=== PATIENT | female | born 1950 | race Caucasian/White ===

== ENCOUNTER 2016-12-29 16:20 | Outpatient (CLI) | payer MEDICARE | END 2016-12-29 23:59 | disposition home or self-care (01) | LOC: RT 16:20 | PROVIDERS: ATTEND Orthopaedic Surgery | DX: Z01.818 Encounter for other preprocedural examination (principal) | CPT/HCPCS: 93005 ==

== ENCOUNTER 2017-08-26 10:36 | Outpatient (CLI) | payer MEDICARE ==
--- NOTE | 2017-08-27 16:02 | Mammography Report ---
DATE OF SERVICE: 08/26/2017 DIGITAL SCREENING MAMMOGRAM: 08/26/2017 CLINICAL INDICATION: A 67-year-old nulliparous patient for screening. COMPARISON: 05/2016, 09/2014, 03/2012, 12/2010, 11/2009. TECHNIQUE: Routine CC and MLO projections were obtained of the breasts. FINDINGS: The breasts demonstrate scattered fibroglandular densities bilaterally. Coarse and punctate, typically benign calcifications are present. No suspicious masses, clustered microcalcifications, or regions of architectural distortion are identified. IMPRESSION: BENIGN FINDINGS. RECOMMENDATION: Routine annual screening unless otherwise clinically indicated. BIRADS CATEGORY 2 - BENIGN FINDINGS. STANDARD QUALIFYING STATEMENTS: 1. This examination was reviewed with the aid of Computer-Aided Detection (CAD). 2. A negative or benign imaging report should not delay biopsy if clinically suspicious findings are present. Consider surgical consultation if warranted. More than 5% of cancers are not identified by imaging. 3. Dense breasts may obscure an underlying neoplasm. TD: 08/27/2017 16:00
== END 2017-08-26 10:37 | disposition home or self-care (01) ==
LOC: DI 10:36
PROVIDERS: ATTEND Physician Assistant
DX: Z12.31 Encounter for screening mammogram for malignant neoplasm of breast (principal)
CPT/HCPCS: 77067

== ENCOUNTER 2018-03-04 10:07 | Outpatient (CLI) | payer MEDICARE ==
--- NOTE | 2018-03-04 11:41 | XRAY Report ---
Procedure Date: 03/04/2018 Accession Number: [id number] / [id number] Procedure: XR - Lumbar Spine 2 View CPT Code: FULL RESULT: EXAM: Lumbar Spine 2 View DATE: 03/04/2018 10:29 AM CLINICAL HISTORY: LOW BACK PAIN COMPARISON: 08/03/2007. TECHNIQUE: 2 views. FINDINGS: Alignment: Normal. No spondylolisthesis or scoliosis. Bones: 4 nonrib-bearing lumbar-type vertebral bodies. L5 is sacralized. No fractures or bone lesions. Disks: Normal. Disk heights are maintained. Facets: Moderate facet arthropathy of the lower lumbar spine. Sacroiliac Joints: Unremarkable. Soft Tissues: Normal. The visualized bowel gas pattern is normal. IMPRESSION: Sacralization of L5. Moderate facet arthropathy lower lumbar spine. RADIA
== END 2018-03-04 10:08 | disposition home or self-care (01) ==
LOC: DI 10:07
PROVIDERS: ATTEND Physician Assistant
DX: M54.5 Low back pain (principal); M46.96 Unspecified inflammatory spondylopathy, lumbar region; M43.27 Fusion of spine, lumbosacral region
CPT/HCPCS: 72100

== ENCOUNTER 2019-09-08 13:50 | Outpatient (CLI) | payer MEDICARE ==
--- NOTE | 2019-09-09 08:31 | XRAY Report ---
Reason: PAIN IN LEFT KNEE Procedure Date: 09/08/2019 Accession Number: [id number] / [id number] Procedure: XR - Knee 3 View LT CPT Code: Final Report FULL RESULT: EXAM: LEFT KNEE RADIOGRAPHY, THREE VIEWS EXAM DATE: 09/08/2019 02:18 PM. CLINICAL HISTORY: Pain in left knee, nontraumatic, in a 69-year-old female. COMPARISON: KNEE 3 VIEW BILAT 04/22/2016 10:40 AM. TECHNIQUE: AP, lateral and patellofemoral views. FINDINGS: Bones: Mild to moderate hypertrophic changes in the tibial spines and patella, as well as in the lateral aspect of the tibia, similar to prior study of March 2016. No fractures or bone lesions. Joints: Increased narrowing of the medial knee joint and patellofemoral joint space. No subluxation or fluid accumulation. Soft Tissues: Normal. No soft tissue swelling. IMPRESSION: Worsening moderate osteoarthritis in the patellofemoral joint and medial joint compartment compared with prior study of March 2016. No acute process or posttraumatic abnormality noted. RADIA
--- NOTE | 2019-09-09 08:37 | XRAY Report ---
Reason: BI LAT HIP PAIN Procedure Date: 09/08/2019 Accession Number: [id number] / [id number] Procedure: XR - Hips 2V BILAT CPT Code: Final Report FULL RESULT: EXAM: BILATERAL HIP RADIOGRAPHY, 3 VIEWS EACH HIP EXAM DATE: 09/08/2019 02:17 PM. CLINICAL HISTORY: 69-year-old female with nontraumatic bilateral hip pain. COMPARISON: Radiographs bilateral hips 06/03/2017 and 04/22/2016. TECHNIQUE: AP view of the pelvis and both hips. Coned-down AP views of the hips and proximal femurs and oblique views of the hips and proximal femurs performed. FINDINGS: Bones: Normal. No fractures or bone lesion. Right Hip: Mild to moderate degenerative joint space narrowing, slightly progressive from prior study. No subluxation or joint effusion. Left Hip: Mild to moderate degenerative joint space narrowing, slightly progressive from prior study. No subluxation or joint effusion. SI Joints: Mild to moderate osteoarthritis, right greater than left, similar to prior study. Soft Tissues: Normal. No soft tissue swelling. IMPRESSION: Mild to moderate osteoarthritic changes both hip joints, mildly progressive from prior study of 2017. Mild to moderate osteoarthritis in the SI joints, similar to prior study. RADIA
== END 2019-09-08 13:51 | disposition home or self-care (01) ==
LOC: DI 13:50
PROVIDERS: ATTEND Physician Assistant
DX: M16.0 Bilateral primary osteoarthritis of hip (principal); M17.12 Unilateral primary osteoarthritis, left knee
CPT/HCPCS: 73521

== ENCOUNTER 2019-12-30 14:43 | Outpatient (CLI) | payer MEDICARE ==
--- NOTE | 2020-01-02 09:56 | Mammography Report ---
BILATERAL DIGITAL SCREENING MAMMOGRAM 3D/2D: 12/30/2019 CLINICAL: Routine screening. Comparison is made to exams dated: 08/26/2017 mammogram, 05/29/2016 mammogram, and 10/17/2014 mammogram - [facility]. There are scattered fibroglandular elements in both breasts. There are benign calcifications in both breasts. No significant masses, calcifications, or other findings are seen in either breast. There has been no significant interval change. IMPRESSION: There is no mammographic evidence of malignancy. A 1 year screening mammogram is recommended. This exam was interpreted at Station ID: [id number]. NOTE: For mammograms, a report in lay terms will be sent to the patient. Approximately 15% of breast malignancies will not be visualized mammographically. In the management of a palpable breast mass, a negative mammogram must not discourage biopsy of a clinically suspicious lesion. Electronically Signed By: Reid Yanez M.D. ddp/penrad:12/30/2019 16:39:22 ACR BI-RADS Category 2: Benign Finding(s) 3342F PARENCHYMAL PATTERN: (A) - The breast(s) demonstrate(s) scattered fibroglandular densities. BI-RADS CATEGORY: (2) - 2 RECOMMENDATION: (ANNUAL) - Recommend routine annual screening mammography. [id number] 1 year screening LATERALITY: (B)
== END 2019-12-30 14:44 | disposition home or self-care (01) ==
LOC: DI 14:43
PROVIDERS: ATTEND Internal Medicine
DX: Z12.31 Encounter for screening mammogram for malignant neoplasm of breast (principal)
CPT/HCPCS: 77063; 77067

== ENCOUNTER 2020-08-08 13:13 | Outpatient (CLI) | payer MEDICARE ==
--- OUTSIDE RECORDS SUMMARY | 2020-08-08 13:15 | EXTERNAL MEDICAL SUMMARY RPT | Continuity of Care Document ---
:1950 Demographics Phone Unavailable Preferred Language Unknown Marital Status Unknown Adventist Affiliation Unknown Race Unknown Ethnic Group Unknown Author Organization [facility] Address [address] [id number] Phone Support Name Relationship Address Phone RETI Unavailable Unavailable Unavailable Social History date description facility [id number]
[2020-08-08] MEDS ORDERED: ROPIVACAINE 0.5% PF 20 ML AMPULE ONE (13:35)
[2020-08-08] MEDS ORDERED: BUFFERED LIDOCAINE 10 ML SYRINGE ONE (13:35)
[2020-08-08] MEDS ORDERED: TRIAMCINOLONE 40 MG/ML VIAL ONE (13:52)
[2020-08-08] MEDS ORDERED: TRIAMCINOLONE 40 MG/ML VIAL IM ONE (15:00)
[2020-08-08] MEDS ORDERED: BUFFERED LIDOCAINE 10 ML SYRINGE IU ONE (15:01)
[2020-08-08] MEDS ORDERED: iohexoL-240 10 ML VIAL IVP ONE (15:02)
[2020-08-08] MEDS ORDERED: ROPIVACAINE 0.5% PF 20 ML AMPULE EP ONE (15:03)
--- NOTE | 2020-08-08 15:17 | XRAY Report ---
PROCEDURE: Inj/Aspiration Major Joint INDICATIONS: OSTEOARTHRITIS OF LEFT HIP JOINT CONTRAST: CONTRAST: omnipaque FLUORO TIME: FLUORO TIME: 10 sec and NUMBER IMAGES: 2 TECHNIQUE: The indications, alternatives, benefits, risks, and complications of the procedure were explained to the patient. Written informed consent was obtained and placed in the chart. The patient was placed in an appropriate position on the fluoroscopy table, and a site was chosen for percutaneous access un echo fluoroscopic guidance. Local anesthetic was administered using a 1% lidocaine solution. A hypod ermic or spinal needle was then used to access the symptomatic joint. Intra-articular location of th e needle tip was confirmed by injecting a small amount of contrast, followed by steroid administratio n. The needle was then withdrawn, and a bandage applied to the puncture site. FINDINGS: Joint injected: Left hip joint. Medications injected: 1 mL of 40 mg/mL Kenalog and 3 mL 0.5% Ropivacaine mixture. Complications: None. IMPRESSION: Successful fluoroscopically guided administration of steroid and anaesthetic solution into the left h ip joint. Reviewed by: Reid Yanez MD on 08/08/2020 3:16 PM PST Approved by: Reid Yanez MD on 08/08/2020 3:16 PM PST Station ID: [id number]
== END 2020-08-08 13:14 | disposition home or self-care (01) ==
LOC: DI 13:13
PROVIDERS: ATTEND Registered Nurse
DX: M16.12 Unilateral primary osteoarthritis, left hip (principal)
CPT/HCPCS: 20610; Q9966

== ENCOUNTER 2021-01-09 10:52 | Outpatient (CLI) | payer MEDICARE ==
[2021-01-09 11:33] VITALS: BP 159/83
--- NOTE | 2021-01-09 11:33 | SLEEP CARE CONSULTATION ---
Information from patient questionnaire entered by Selma Huffman. I have reviewed and concur with the information entered by Selma Huffman. This document represents the service I personally performed and the decisions made by me, Janie Huffman ARNP. History of Present Illness Service Date and Time: 01/09/2021 1052 Reason for Visit: New patient, Previously diagnosed sleep apnea (severe - AHI - 33.7 in 2006, mild - 9.5 in 2011), Re-establish care (last seen 2010) Chief Complaint: reports: Unrefreshed sleep, Excessive daytime sleepiness, Fatigue Date of Onset: 6 months, possibly Usual bedtime: 11 pm - 12 am Time it takes to fall asleep: 10 minutes or less Snores at night: Yes (occasionally) Observed to quit breathing while asleep: No Sleeps alone due to snoring: No (we sleep separately because of his snoring) Number of times waking at night: 1 Reasons for waking at night: reports: Pain, Bathroom. denies: Choking, Snoring, Gasping for air Toss, Turn, or Twitch while sleeping: No Recalls having dreams: Yes Usually gets out of bed at: 9 am Feels refreshed in the morning: No Morning headache: Yes (have a had a constant headache for many weeks) Sleepy or fatigued during the day: Yes Ever fallen asleep while driving: No Takes day naps: Yes (6 days a week, sleeping for an hour) Dreams during day naps: No (don't know) Prior sleep studies: Yes Year and Where: 2011 and 2006 - [facility] Sleep Type of Sleep Study: Polysomnography Additional HPI information: MIKE ARIAS was previously diagnosed to have mild, AHI 9.5 in 2011 (severe, 33.7 in 2006), obstructive sleep apnea-hypopnea syndrome and comes in today to re-establish care. Her current complaints include excessive daytime sleepiness, fatigue and unrefreshed sleep. She doesn't seem to get rested and she has headaches all the time. She wakes up with headaches and they stay all day. She takes Tylenol or drinks caffeine with some improvement. She also takes tramadol as needed for her headaches. She takes naps during the day for about an hour. Her has not heard her snoring but she does snore occasionally. She has used a CPAP machine but is not sure how long she used it. She is not using any therapy for her sleep apnea at this time. She has lost weight since her last sleep study in 2011. She thinks she's lost about 50 pounds. Patient states her father snored and possibly had sleep apnea but was never treated. - Parasomnia Symptoms Ever been unable to move upon waking from sleep: No Walks in sleep: No Talks in sleep: No Ever acted out dreams in sleep: No Ever felt weak in the knees when startled or emotional: No Bothered by creepy, crawly, restless sensations in legs: No Problems with memory or concentration: Yes (both) Subjective Initial [place] Sleepiness Scale score: 9 (in 2006) Current [place] Sleepiness Scale score: 4 Past Medical History Past Medical History: reports: Hypertension, Diabetes, Arthritis, Depression Social History The patient's occupation is a Retired. Patient is and lives in [facility]. Have you smoked in the past 12 months: No Alcohol use: No Caffeine use: Yes Caffeine amount and frequency: 15 oz twice daily Family History Family history of sleep disordered breathing: Yes Family Hx Sleep Apnea: Father: Snoring, Sleep apnea - Untreated Allergies and Home Medications Drug allergies reviewed: Yes (NKDA) Home medication list reviewed: Yes Allergy and home medication list: Atorvastatin Metformin Tramadol HCL Fluoxetine Larsartan Potassium Clotrimazole Actos-Pioglitazone HCL Bupropion HCL Glipizide Gabapentin Mature Mulitvitamin Vit D3 Fish oil Ocuvite Glucosamine HCL/MSM Melatonin gummies Review of Systems Weight loss over past 5 years: 70 Cardiovascular: reports: high blood pressure Neurological: reports: headaches Psychiatric: reports: depression, mood disorder (bi-polar) Ear/Nose/Throat: reports: wisdom teeth removed Endocrine: reports: sluggishness Musculoskeletal: reports: joint pain, back pain, muscle pain or cramping (cramping in calf muscles) Immunologic: reports: sneezing (cats and pollen), itching (skin) Physical Exam Blood Pressure: 159/83 (did not take AM BP meds) Cuff size: wrist Heart Rate: 59 O2 Saturation: 98 Height: 5 ft 6 in Weight: 237 lb Body Mass Index: 38.2 BMI Classification: Obese Heart: regular rate and rhythm Lungs: clear bilaterally Impression and Plan 1. Suspected Obstructive Sleep Apnea-Hypopnea Syndrome, as previously diagnosed and as suggested by a history of irregular snoring, morning headache, unrefreshed sleep, cognitive impairment, and excessive daytime sleepiness. Patient has been on CPAP in the past but is not currently using a CPAP machine or other therapy for her sleep apnea. I discussed with patient that we need to retest to confirm diagnosis and severity of her sleep apnea. I recommend proceeding to polysomnography and obtained agreement to proceed. The pathophysiology of obstructive sleep apnea-hypopnea syndrome was discussed with the patient and health risks of cardiovascular and cerebrovascular disease if not treated. Risks of drowsy driving discussed in detail and patient advised to avoid long distance driving and to meat puller at the first sign of drowsiness. Patient agreed to plan. * Schedule polysomnography * Avoid long distance driving or driving when feeling sleepy. * Avoid alcohol, sedative and muscle relaxant around bedtime. * Continue to try to lose weight. * Review instructions provided by trained office staff on how to prepare for the sleep study. * Return for follow-up after sleep study completed. Counseling Topics: Weight loss health impact Visit Type: In Office Time Spent with Patient (minutes): 30 Provider Statement: I spent 100% of the Face to Face Visit with the patient with greater than 50% spent counseling the patient and coordination of care.
== END 2021-01-09 10:53 | disposition home or self-care (01) ==
LOC: SC 10:52
PROVIDERS: ATTEND Nurse Practitioner Family
DX: G47.33 Obstructive sleep apnea (adult) (pediatric) (principal); E66.9 Obesity, unspecified; Z68.38 Body mass index [BMI] 38.0-38.9, adult
CPT/HCPCS: 99203; G0463; 99212

== ENCOUNTER 2021-04-24 14:34 | Outpatient (CLI) | payer MEDICARE | END 2021-04-24 14:35 | disposition home or self-care (01) | LOC: LAB.S 14:34 | PROVIDERS: ATTEND Nurse Practitioner Family | DX: R41.3 Other amnesia (principal) | CPT/HCPCS: 36415; 84443 ==

== ENCOUNTER 2021-08-28 11:23 | Outpatient (CLI) | payer MEDICARE ==
[2021-08-28 15:14] LABS: BASOPHILS # (AUTO) 0.1 10^3/uL (0.0-0.1); BASOPHILS % (AUTO) 0.6 %; EOSINOPHILS # (AUTO) 0.3 10^3/uL (0.0-0.7); EOSINOPHILS % (AUTO) 3.1 %; HCT - HEMATOCRIT 42.7 % (37.0-47.0); HGB - HEMOGLOBIN 13.7 g/dL (12.0-16.0); LYMPHOCYTES # (AUTO) 2.7 10^3/uL (1.5-3.5); LYMPHOCYTES % (AUTO) 31.6 %; MEAN CORPUSCULAR HEMOGLOBIN 28.7 pg (27.0-31.0); MEAN CORPUSCULAR HGB CONC 32.1 g/dL (32.0-36.0); MEAN CORPUSCULAR VOLUME 89.3 fL (81.0-99.0); MEAN PLATELET VOLUME 10.4 fL (7.9-10.8); MONOCYTES # (AUTO) 0.4 10^3/uL (0.0-1.0); MONOCYTES % (AUTO) 4.6 %; NEUTROPHILS # (AUTO) 5.1 10^3/uL (1.5-6.6); NEUTROPHILS % (AUTO) 59.7 %; PLT - PLATELET COUNT 301 10^3/uL (130-450); RED BLOOD COUNT 4.78 10^6/uL (4.20-5.40); RED CELL DISTRIBUTION WIDTH 13.5 % (12.0-15.0); WHITE BLOOD COUNT 8.5 x10^3/uL (4.8-10.8)
[2021-08-28 16:35] LABS: ALBUMIN 4.2 g/dL (3.2-5.5); ALBUMIN/GLOBULIN RATIO 1.6 (1.0-2.2); ALKALINE PHOSPHATASE 72 IU/L (42-121); ALT ALANINE AMINOTRANSFERASE 25 IU/L (10-60); AST ASPARTATE AMINOTRANSFERASE 20 IU/L (10-42); BILIRUBIN,TOTAL 0.7 mg/dL (0.2-1.0); BUN - BLOOD UREA NITROGEN 22 mg/dL (6-20); CALCIUM 9.6 mg/dL (8.5-10.3); CARBON DIOXIDE - CO2 28 mmol/L (21-32); CHLORIDE 97 mmol/L (101-111); CHOL/HDL RATIO 3.6 (<4.4); CHOLESTEROL 187 mg/dL; CREATININE 0.7 mg/dL (0.4-1.0); GFR - MDRD 82 (>89); GLUCOSE 187 mg/dL (70-100); HDL CHOLESTEROL 52 mg/dL; LDL CHOLESTEROL,CALCULATED 98 mg/dL; LDL/HDL RATIO 1.9 (<4.4); SODIUM 136 mmol/L (135-145); TOTAL PROTEIN 6.9 g/dL (6.7-8.2); TRIGLYCERIDES 185 mg/dL; VLDL CHOLESTEROL 37 mg/dL
== END 2021-08-28 11:24 | disposition home or self-care (01) ==
LOC: LAB.S 11:23
PROVIDERS: ATTEND Nurse Practitioner Psychiatric/Mental Health
DX: F33.0 Major depressive disorder, recurrent, mild (principal); E55.9 Vitamin D deficiency, unspecified; Z79.899 Other long term (current) drug therapy
CPT/HCPCS: 36415; 80053; 80061; 82306; 83721; 84443; 85025

== ENCOUNTER 2021-09-10 11:19 | Outpatient (CLI) | payer MEDICARE ==
[2021-09-10 12:11] VITALS: BP 133/81
--- NOTE | 2021-09-10 12:11 | SLEEP CARE CONSULTATION ---
Information from patient questionnaire entered by Josie Tran MA. I have reviewed and concur with the information entered by Josie Tran MA. This document represents the service I personally performed and the decisions made by , Janie Huffman ARNP. History of Present Illness Service Date and Time: 09/10/2021 1119 Previous diagnosis: Mild, Obstructive Sleep Apnea-Hypopnea Syndrome AHI: 9.5 (2011 (severe 33.7 in 2006)) Reason for follow up: other (8 MONTH F\U, NOT A CPAP USER,) Prior sleep studies: Yes Year and Where: 2011 and 2006 - [facility] Sleep Type of Sleep Study: Polysomnography HPI additional information: MIKE ARIAS was previously diagnosed to have mild AHI 9.5 in 2011 and severe AHI 33.7 in 2006, obstructive sleep apnea-hypopnea syndrome and returns today for follow-up. She is not currently on CPAP or other therapy for her sleep apnea. We last saw her in 12/2020 and a sleep study was ordered but she did not complete this study. She states she is getting so tired and needing naps during the day. She is sleeping separate from her due to his snoring so she doesn't know if she still snores. Shes does not wake up feeling rested. She wakes up with dry mouth but denies choking, gasping for air or snoring. She states she generally sleeps through the night. She has used a CPAP in the past without any problems. She does not remember why she stopped using the CPAP. Sleep Study - Results Type of Sleep Study: Polysomnography Prior sleep studies: Yes Year and Where: 2011 and 2006 - [facility] Subjective Initial [place] Sleepiness Scale score: 9 (in 2006) Current [place] Sleepiness Scale score: 3 (2021) Allergies and Home Medications Known drug allergies: No Drug allergies reviewed: Yes Home medication list reviewed: Yes (no changes, see scanned list) Allergy and home medication list: Allergies No Known Drug Allergies Allergy (Verified 10/12/20 15:22) Review of Systems Review of systems same as previous: No (HAD RIGHT KNEE REPLACED few years ago) Weight loss over past 5 years: 60 lbs Physical Exam Vital signs obtained and entered by: Kimberly TRAN CMA AALIV Blood Pressure: 133/81 (LEFT, PULSE 76, RESP 16,) Cuff size: wrist Heart Rate: 73 O2 Saturation: 97 (WITH A PAPER MASK) Height: 5 ft 6 in Weight: 237 lb Weight change since last visit: LOSS THE WEIGHT WALKING (60 BS) Body Mass Index: 38.2 BMI Classification: Obese Impression and Plan 1. Suspected Obstructive Sleep Apnea-Hypopnea Syndrome, as previously diagnosed and as still suggested by a history of loud and irregular snoring, morning headache, unrefreshed sleep, cognitive impairment, and excessive daytime sleepiness. I ordered a sleep study 8 months ago that did not get completed and patient does not remember why. I recommend proceeding to polysomnography to confirm the diagnosis and to assess severity due to patient continued symptoms. If the patient has significant sleep disordered breathing, a manual CPAP titration study will also be performed to find the optimal treatment pressure. I informed the patient of what the sleep studies involve and after some discussion, obtained agreement to proceed. The pathophysiology of obstructive sleep apnea-hypopnea syndrome was discussed with the patient and health risks of cardiovascular and cerebrovascular disease if not treated. Risks of drowsy driving discussed in detail and patient advised to avoid long distance driving and to tack puller machine at the first sign of drowsiness. Patient agreed to plan. * Schedule polysomnography +- manual CPAP titration study and return in 1-2 weeks after the study to discuss result and initiate therapy. * Avoid long distance driving or driving when feeling sleepy. * Avoid alcohol, sedative and muscle relaxant around bedtime. * Continue to try to lose weight. * Review instructions provided by trained office staff on how to prepare for the sleep study. * Return for follow-up after sleep study completed. Counseling Topics: Weight loss health impact Visit Type: In Office Time Spent with Patient (minutes): 25 Provider Statement: I spent 100% of the Face to Face Visit with the patient with greater than 50% spent counseling the patient and coordination of care.
== END 2021-09-10 11:20 | disposition home or self-care (01) ==
LOC: SC 11:19
PROVIDERS: ATTEND Nurse Practitioner Family
DX: G47.33 Obstructive sleep apnea (adult) (pediatric) (principal); E66.9 Obesity, unspecified; Z68.38 Body mass index [BMI] 38.0-38.9, adult
CPT/HCPCS: 99213; G0463; 99212

== ENCOUNTER 2021-10-11 10:04 | Outpatient (CLI) | payer MEDICARE | END 2021-10-11 10:05 | disposition home or self-care (01) | LOC: SC 10:04 | PROVIDERS: ATTEND Nurse Practitioner Family | DX: G47.33 Obstructive sleep apnea (adult) (pediatric) (principal); R09.02 Hypoxemia | CPT/HCPCS: G0399 ×2; 95806 ==

== ENCOUNTER 2021-12-16 14:44 | Outpatient (CLI) | payer MEDICARE ==
--- NOTE | 2021-12-16 16:36 | XRAY Report ---
PROCEDURE: Lumbar Spine 2 View INDICATIONS: LOWER BACK PAIN TECHNIQUE: 3 views of the lumbar spine were acquired. COMPARISON: None. FINDINGS: Bones: 5 [id number] vertebrae are present. There is normal bony alignment. No vertebral body compression fractures. No suspicious bony lesions. Moderate L4-L5 and L5-S1 degenerative disease. Mi ld L1-L2, L2-L3 and L3-L4 degenerative disease. Severe L5-S1 facet arthropathy. Moderate L3-L4, L4-L5 facet arthropathy. Soft tissues: Overlying bowel gas pattern is normal. No suspicious soft tissue calcifications. IMPRESSION: 1. Multilevel degenerative disc disease. 2. Multilevel facet arthropathy. 3. No fracture. No acute osseous lesion. If there is continued clinical concern for pathology, then M RI should be considered for further evaluation. Reviewed by: Maria T Howell MD, PhD on 12/16/2021 4:35 PM PDT Approved by: Maria T Howell MD, PhD on 12/16/2021 4:35 PM PDT Station ID: [id number]
--- NOTE | 2021-12-16 16:38 | XRAY Report ---
PROCEDURE: SI Joints INDICATIONS: LOWER BACK PAIN TECHNIQUE: 3 views of the sacroiliac joints were acquired. COMPARISON: None FINDINGS: Bones: No bony erosions. Ankylosis at the superior margins of the SI joints. No suspicious bony les ions. No fractures. Degenerative disc disease and facet arthropathy noted in the lower lumbar spine. Soft tissues: Overlying bowel gas pattern is normal. No suspicious soft tissue densities. IMPRESSION: Bilateral superior SI joint ankylosis. Please correlate with clinical and laboratory data to exclude ankylosing spondylitis. Reviewed by: Maria T Howell MD, PhD on 12/16/2021 4:37 PM PDT Approved by: Maria T Howell MD, PhD on 12/16/2021 4:37 PM PDT Station ID: [id number]
== END 2021-12-16 14:45 | disposition home or self-care (01) ==
LOC: DI 14:44
PROVIDERS: ATTEND Registered Nurse
DX: M53.3 Sacrococcygeal disorders, not elsewhere classified (principal); M43.28 Fusion of spine, sacral and sacrococcygeal region; M47.816 Spondylosis without myelopathy or radiculopathy, lumbar region; M47.817 Spondylosis without myelopathy or radiculopathy, lumbosacral region; M51.36 Other intervertebral disc degeneration, lumbar region; M51.37 Other intervertebral disc degeneration, lumbosacral region

== ENCOUNTER 2022-04-01 15:12 | Outpatient (CLI) | payer MEDICARE ==
[2022-04-01 15:53] VITALS: BP 140/68
--- NOTE | 2022-04-01 15:53 | SLEEP CARE CONSULTATION ---
Information from patient questionnaire entered by Darci Goode. I have reviewed and concur with the information entered by Darci Goode. This document represents the service I personally performed and the decisions made by , Janie Huffman ARNP. History of Present Illness Service Date and Time: 04/01/2022 1512 Previous diagnosis: Mild, Obstructive Sleep Apnea-Hypopnea Syndrome AHI: 8.4 (2021; 9.5 in 2011 (severe 33.7 in 2006)) Reason for follow up: first compliance (1ST COMPLIANCE, SET UP 11/25, RESMED) Equipment type: CPAP Equipment obtained from: [employer] (got initial supplies) Mask style: Nasal pillows Mask brand: Resmed (AirFit [id number]) Backup mask available: No (will keep old mask when replaced) Last cushion change: not changed yet Prior sleep studies: Yes Year and Where: 2011 and 2006 - [facility] Sleep Type of Sleep Study: Polysomnography (F/U HOME STUDY, 10/13/21 [facility],) HPI additional information: MIKE ARIAS was diagnosed to have mild, AHI 8.4, obstructive sleep apnea-hypo pnea syndrome and returned today for CPAP therapy first compliance follow-up. Sleep Study - Results Type of Sleep Study: Polysomnography (F/U HOME STUDY, 10/13/21 [facility],) Prior sleep studies: Yes Year and Where: 2011 and [address] [facility] Sleep CPAP Compliance Data - Data Reviewed with Patient Average duration of nightly device use: 5 HOURS, 47 MINS Compliance rate %: 60 (03/02/2022-03/31/2022; 24/30 days used) Current pressure setting (cmH2O): 4-15 (median 6.9, avg 9.2, max 10.1) Average residual AHI: 1.2 Average large leak: 0.4 L/min Subjective Missed days of use due to: reports: other (has lots of pain issues) Patient concerns: reports: dry mouth, nose, throat (uses Biotene spray as needed). denies: aerophagia, mask discomfort, air blowing in eyes, mask leak noise, condensation in mask/hose, nasal congestion, epistaxis, other Observed to snore while using device: No Current pressure setting perceived as: comfortable On therapy, patient: reports: sleeping better, awakening more refreshed, being more awake and alert during the day, more rested overall. denies: drowsiness while driving Initial [place] Sleepiness Scale score: 9 (in 2006) Current [place] Sleepiness Scale score: 4 (04/01/22) Allergies and Home Medications Drug allergies reviewed: Yes (NKDA) Home medication list reviewed: Yes (no changes) Allergy and home medication list: Allergies No Known Drug Allergies Allergy (Verified 10/12/20 15:22) Review of Systems Review of systems same as previous: Yes (diabetes, under control with meds) Physical Exam Vital signs obtained and entered by: EMILIANA, [employer]ER Blood Pressure: 140/68 (LEFT ) Cuff size: regular Heart Rate: 58 O2 Saturation: 97 Height: 5 ft 6 in Weight: 229 lb Body Mass Index: 36.9 BMI Classification: Obese Impression and Plan 1. Obstructive Sleep Apnea-Hypopnea Syndrome, mild, with fair treatment compliance and good apnea control. On CPAP therapy, the patient has better sleep quality and is more rested overall. Patient has been doing well but due to pain issues is not always wearing her mask for the full 4 hours. She states sometimes she will nap without it. I advised her to wear her mask with naps as well as when she sleeps at night. She voiced understanding and agreement. The patients pressure will be changed to autoCPAP 6-10 cmH20 to reflect pressure being used. Patient advised to contact me if pressure change is uncomfortable so that it can be adjusted. Goals for apnea control discussed. Patient's apnea severity and rationale for treatment to reduce apnea, improve sleep quality and reduce cardiovascular and cerebrovascular events was reviewed. I also reviewed the benefit of consistent device use of CPAP for hypertension, diabetes and depression. 2. Obesity, unspecified. Currently patients BMI is 36.9. Obesity increases the risk of apnea, CPAP pressure requirements and overall health risks especially cardiovascular and diabetes. Thus patient is advised to lose weight. * Change auto CPAP pressure to 6-10 cmH2O * Notify me if snoring with mask or feeling that the pressure is too much or too little * Attempt to lose weight * Call this office if any problems using CPAP * Return for follow up in 1-2 months, or sooner if concerns arise Counseling Topics: Weight loss health impact Visit Type: In Office Time Spent with Patient (minutes): 21 Provider Statement: I spent 100% of the Face to Face Visit with the patient with greater than 50% spent counseling the patient and coordination of care.
== END 2022-04-01 15:13 | disposition home or self-care (01) ==
LOC: SC 15:12
PROVIDERS: ATTEND Nurse Practitioner Family
DX: G47.33 Obstructive sleep apnea (adult) (pediatric) (principal); E66.9 Obesity, unspecified; Z68.36 Body mass index [BMI] 36.0-36.9, adult
CPT/HCPCS: 99213; G0463; 99212

== ENCOUNTER 2022-05-15 15:08 | Outpatient (CLI) | payer MEDICARE ==
--- NOTE | 2022-05-15 15:31 | SLEEP CARE CONSULTATION ---
Information from patient questionnaire entered by Cinda Abernathy. I have reviewed and concur with the information entered by Cinda Abernathy. This document represents the service I personally performed and the decisions made by me, Janie Huffman ARNP. History of Present Illness Service Date and Time: 05/15/2022 1508 Previous diagnosis: Mild, Obstructive Sleep Apnea-Hypopnea Syndrome AHI: 8.4 Reason for follow up: other (SIX WEEK F/U PRESSURE CHANGE ) Equipment type: CPAP (RESMED) Equipment obtained from: [facility] (getting supplies as needed) Mask style: Nasal pillows Mask brand: Resmed (AirFit [id number]) Backup mask available: Yes (old mask) Prior sleep studies: Yes Year and Where: 2011 and 2006 - [facility] Type of Sleep Study: Polysomnography (F/U HOME STUDY, 10/13/21 [facility],) HPI additional information: MIKE ARIAS was diagnosed to have mild, AHI 8.4, obstructive sleep apnea- hypopnea syndrome and returned today for CPAP therapy six week with pressure change follow-up. Sleep Study - Results Type of Sleep Study: Polysomnography (F/U HOME STUDY, 10/13/21 [facility],) Prior sleep studies: Yes Year and Where: 2011 and 2006 - [facility] CPAP Compliance Data - Data Reviewed with Patient Average duration of nightly device use: 9 hrs 33 min Compliance rate %: 100 (04/13/22-05/12/2022; 30/30 days used) Current pressure setting (cmH2O): 6-10 Average residual AHI: 1.5 Central apnea: 0.6 Obstructive apnea: 0.3 Subjective Patient concerns: reports: dry mouth, nose, throat (occasionally, uses biotene before sleep; helps reduce dryness). denies: aerophagia, mask discomfort, air blowing in eyes, mask leak noise, condensation in mask/hose, nasal congestion, epistaxis Observed to snore while using device: No Current pressure setting perceived as: comfortable On therapy, patient: reports: sleeping better, awakening more refreshed, being more awake and alert during the day, more rested overall. denies: drowsiness while driving Initial Salome Sleepiness Scale score: 9 (in 2006) Current Salome Sleepiness Scale score: 3 (05/15/2022) Allergies and Home Medications Drug allergies reviewed: Yes (NKDA) Home medication list reviewed: Yes (no changes) Review of Systems Review of systems same as previous: Yes (no changes) Physical Exam Vital signs obtained and entered by: CINDA Aden MA Blood Pressure: 132/62 (left arm) Cuff size: regular Heart Rate: 97 O2 Saturation: 69 Height: 5 ft 6 in Weight: 225 lb 9.6 oz Weight change since last visit: 4 lb loss Body Mass Index: 36.3 BMI Classification: Obese Impression and Plan 1. Obstructive Sleep Apnea-Hypopnea Syndrome, mild, with good treatment compliance and good apnea control. On CPAP therapy, the patient has better sleep quality and is more rested overall.Patient has noticed that when she takes a nap without her CPAP she is more groggy. Using her CPAP she is sleeping well and waking up with a clear head. Patient has significant improvement of their sleep apnea and are satisfied with current CPAP therapy. Patient denies problems with oral dryness, nasal congestion, epistaxis, skin irritation or aerophagia. Patient's apnea severity and rationale for treatment to reduce apnea, improve sleep quality and reduce cardiovascular and cerebrovascular events was reviewed. I also reviewed the benefit of consistent device use of CPAP for hypertension, diabetes and depression. 2. Obesity, unspecified. Currently patients BMI is 36.3. She is in physical therapy (water aerobics) once a week and she really enjoys it. She has lost 4 lbs since her last appointment. Obesity increases the risk of apnea, CPAP pressure requirements and overall health risks especially cardiovascular and diabetes. Thus patient is advised to continue to try to lose weight. * Continue auto CPAP pressure at 6-10 cmH2O * Notify me if snoring with mask or feeling that the pressure is too much or too little * Attempt to lose weight * Call this office if any problems using CPAP * Return for follow up in 3 months, or sooner if concerns arise Counseling Topics: Spare mask, Weight loss health impact Visit Type: In Office Time Spent with Patient (minutes): 14 Provider Statement: I spent 100% of the Face to Face Visit with the patient with greater than 50% spent counseling the patient and coordination of care.
[2022-05-15 15:32] VITALS: BP 132/62
== END 2022-05-15 15:09 | disposition home or self-care (01) ==
LOC: SC 15:08
PROVIDERS: ATTEND Nurse Practitioner Family
DX: G47.33 Obstructive sleep apnea (adult) (pediatric) (principal); Z68.36 Body mass index [BMI] 36.0-36.9, adult
CPT/HCPCS: 99212; G0463

== ENCOUNTER 2022-10-24 08:00 | Outpatient (CLI) | payer MEDICARE | END 2022-10-24 23:59 | disposition home or self-care (01) | LOC: LAB 08:00 | PROVIDERS: ATTEND Physician Assistant Medical | DX: N39.0 Urinary tract infection, site not specified (principal) | CPT/HCPCS: 87086 ==

== ENCOUNTER 2022-10-24 14:01 | Outpatient (CLI) | payer MEDICARE ==
[2022-10-24 20:11] LABS: BASOPHILS # (AUTO) 0.1 10^3/uL (0.0-0.1); BASOPHILS % (AUTO) 0.5 %; EOSINOPHILS # (AUTO) 0.3 10^3/uL (0.0-0.7); EOSINOPHILS % (AUTO) 2.8 %; HCT - HEMATOCRIT 41.4 % (37.0-47.0); LYMPHOCYTES # (AUTO) 2.3 10^3/uL (1.5-3.5); LYMPHOCYTES % (AUTO) 23.9 %; MEAN CORPUSCULAR HEMOGLOBIN 27.9 pg (27.0-31.0); MEAN CORPUSCULAR HGB CONC 31.4 g/dL (32.0-36.0); MEAN CORPUSCULAR VOLUME 88.8 fL (81.0-99.0); MEAN PLATELET VOLUME 10.5 fL (7.9-10.8); MONOCYTES # (AUTO) 0.5 10^3/uL (0.0-1.0); MONOCYTES % (AUTO) 5.5 %; NEUTROPHILS # (AUTO) 6.5 10^3/uL (1.5-6.6); NEUTROPHILS % (AUTO) 67.1 %; PLT - PLATELET COUNT 331 10^3/uL (130-450); RED BLOOD COUNT 4.66 10^6/uL (4.20-5.40); RED CELL DISTRIBUTION WIDTH 13.8 % (12.0-15.0); WHITE BLOOD COUNT 9.6 x10^3/uL (4.8-10.8)
[2022-10-24 20:26] LABS: CALCIUM 9.5 mg/dL (8.5-10.3); CREATININE 0.6 mg/dL (0.4-1.0); POTASSIUM 4.5 mmol/L (3.5-5.0)
[2022-10-24 22:21] LABS: ESTIMATED AVERAGE GLUCOSE 203 mg/dL (70-100); HEMOGLOBIN A1c% 8.7 % (4.27-6.07)
== END 2022-10-24 14:02 | disposition home or self-care (01) ==
LOC: LAB.S 14:01
PROVIDERS: ATTEND Physician Assistant Medical
DX: E11.8 Type 2 diabetes mellitus with unspecified complications (principal)
CPT/HCPCS: 36415; 80048; 83036; 85025

== ENCOUNTER 2022-10-30 08:00 | Outpatient (CLI) | payer MEDICARE ==
[2022-10-30 19:39] LABS: BILIRUBIN,URINE NEGATIVE (NEGATIVE); GLUCOSE, URINE (UA) 250 mg/dL (NEGATIVE); KETONES,URINE (UA) NEGATIVE (NEGATIVE); LEUKOCYTE ESTERASE, URINE NEGATIVE (NEGATIVE); NITRITE,URINE POSITIVE (NEGATIVE); OCCULT BLOOD,URINE NEGATIVE (NEGATIVE); PROTEIN,URINE NEGATIVE (NEGATIVE); UROBILINOGEN,URINE 0.2 (NORMAL) E.U./dL (NORMAL)
[2022-10-30 19:53] LABS: CLARITY,URINE CLEAR (CLEAR)
[2022-10-30 20:12] LABS: BACTERIA,URINE Moderate /HPF (None Seen); RBC,URINE 0-5 /HPF (0-5); SQUAMOUS EPITHELIAL CELL,UR RARE Squamous (<= Few); WBC,URINE 0-3 /HPF (0-5)
== END 2022-10-30 23:59 | disposition home or self-care (01) ==
LOC: LAB.S 08:00
PROVIDERS: ATTEND Emergency Medicine
DX: R30.0 Dysuria (principal)
CPT/HCPCS: 81001; 87086

== ENCOUNTER 2022-11-04 13:29 | Outpatient (CLI) | payer MEDICARE ==
[2022-11-04 20:01] LABS: BILIRUBIN,URINE NEGATIVE (NEGATIVE); GLUCOSE, URINE (UA) NEGATIVE (NEGATIVE); KETONES,URINE (UA) NEGATIVE (NEGATIVE); LEUKOCYTE ESTERASE, URINE NEGATIVE (NEGATIVE); NITRITE,URINE NEGATIVE (NEGATIVE); OCCULT BLOOD,URINE NEGATIVE (NEGATIVE); PROTEIN,URINE NEGATIVE (NEGATIVE); UROBILINOGEN,URINE 0.2 (NORMAL) E.U./dL (NORMAL)
[2022-11-04 20:03] LABS: CLARITY,URINE CLEAR (CLEAR)
[2022-11-04 20:20] LABS: WBC,URINE 0-3 /HPF (0-5)
[2022-11-04 20:21] LABS: BACTERIA,URINE None Seen /HPF (None Seen); CRYSTALS,URINE 11-25 Ca Oxalate /LPF; RBC,URINE None Seen /HPF (0-5); SQUAMOUS EPITHELIAL CELL,UR FEW Squamous (<= Few)
== END 2022-11-04 13:30 | disposition home or self-care (01) ==
LOC: LAB.S 13:29
PROVIDERS: ATTEND Emergency Medicine
DX: R30.0 Dysuria (principal)
CPT/HCPCS: 81001; 87086

== ENCOUNTER 2023-03-11 13:38 | Outpatient (CLI) | payer MEDICARE ==
[2023-03-11 14:52] LABS: CREATININE 0.8 mg/dL (0.4-1.0)
== END 2023-03-11 13:39 | disposition home or self-care (01) ==
LOC: LAB 13:38
PROVIDERS: ATTEND Registered Nurse
DX: R10.2 Pelvic and perineal pain (principal)
CPT/HCPCS: 36415; 82565

== ENCOUNTER 2023-03-26 10:57 | Outpatient (CLI) | payer MEDICARE ==
[2023-03-26] MEDS ORDERED: BARIUM SULFATE 450 ML BOTTLE PO ONE (15:06)
[2023-03-26] MEDS ORDERED: iohexoL-300 100 ML VIAL IVP ONE (15:07)
--- NOTE | 2023-03-26 15:30 | CT Report ---
PROCEDURE: ABDOMEN/PELVIS W INDICATIONS: PELVIC PAIN CONTRAST: 100mL OMni 300 TECHNIQUE: After the administration of oral and intravenous contrast, 5 mm thick sections acquired from the diap hragms to the symphysis. 5 mm thick coronal and sagittal reformats were acquired. For radiation dos e reduction, the following was used: automated exposure control, adjustment of mA and/or kV accordin g to patient size. COMPARISON: None FINDINGS: Image quality: Excellent. Lung bases and heart: Unremarkable. Liver: No solid mass. Gallbladder and biliary tree: No radiopaque stones or wall thickening. No biliary dilation. Spleen: No splenomegaly. Pancreas: No pancreatic ductal dilation. Adrenals: There is a 3.3 cm left adrenal nodule with a Hounsfield measurement of -0.41, consistent wi th a lipid laden left adrenal adenoma. The right adrenal is unremarkable. Kidneys and ureters: No hydronephrosis. No renal cystic lesion which requires follow up. No solid mas s. Bowel and peritoneum: No bowel distension. No pathologic free fluid. Mild diverticulosis without evid ence of diverticulitis. Lymph nodes: No central or retroperitoneal adenopathy. Vessels: No infrarenal aortic aneurysm. PELVIS Reproductive organs: There is a calcified exophytic anterior fundal fibroid indenting on the dome of the bladder measuring 2.1 cm. Bladder: No abnormal wall thickening, accounting for underdistension. Pelvic lymph nodes: No pelvic adenopathy by size criteria. Bones: No aggressive osseous abnormality. There is quite prominent ossification of the posterior long itudinal ligament from L2-L3 through the top of L4 resulting in severe or high-grade canal stenosis. Other: No significant ventral or inguinal hernia. IMPRESSION: 1. No acute abdominal process. 2. A 2.1 cm exophytic uterine fibroid indents on the bladder, potentially resulting in urinary freque ncy symptoms. 3. 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 Reviewed by: Cm Leal MD on 03/26/2023 3:28 PM PDT Approved by: Cm Leal MD on 03/26/2023 3:28 PM PDT Station ID: [id number]
== END 2023-03-26 10:58 | disposition home or self-care (01) ==
LOC: DI 10:57
PROVIDERS: ATTEND Registered Nurse
DX: R10.2 Pelvic and perineal pain (principal); D25.9 Leiomyoma of uterus, unspecified; M48.8X6 Other specified spondylopathies, lumbar region; M48.061 Spinal stenosis, lumbar region without neurogenic claudication
CPT/HCPCS: 74177; A9270; Q9967